=== PATIENT | female | born 1990 | race African-American/Black ===

== ENCOUNTER 2025-05-16 10:59 | Emergency (ER) | payer OTHER, SELFPAY ==
--- NOTE | 2025-05-16 11:43 | RAD REPORT ---
EXAMINATION: Head Brain Wo Cont CLINICAL INDICATION: Female, 34 years old.Headache;Numbness TECHNIQUE: Axial CT images from the skull base to the vertex without intravenous contrast. Coronal an d sagittal reformatted images were created from the data set. One or more of the following dose reduction techniques were used: Automated exposure control, adjustment of the mA and/or kV according to patient size, and/or iterative reconstruction. Unless otherwise specified, incidental findings do not require dedicated imaging follow-up. [id number]. COMPARISON: No prior exams FINDINGS: INTRACRANIAL: No acute intracranial hemorrhage. No acute large vascular territory infarct. No hydro cephalus. No mass effect or midline shift. No significant white matter disease. VASCULATURE: No visualized abnormalities in the arteries or dural venous sinuses. SCALP/SKULL: No calvarial fracture identified. No acute soft tissue abnormality. SINUSES: The visualized paranasal sinuses are mostly clear. No significant mastoid fluid. IMPRESSION: No acute intracranial abnormality.
[2025-05-16 11:57] LABS: Absolute Lymphocytes (CBC) 1.8 K/uL (0.7-4.9); Hematocrit 38.0 % (36.0-45.0); Hemoglobin 12.7 g/dL (12.0-15.0); MCH 31.6 pg (27.0-35.0); MCHC 33.4 g/dL (32.0-36.0); MCV 94.4 fL (80-100); MPV 9.1 fL (7.6-11.3); Nucleated RBC Absolute Count 0.0 (0-0); Nucleated Red Blood Cells % 0.0 % (0-0); RBC Red Blood Cell Count 4.02 M/uL (3.86-4.86); White Blood Count 5.80 thou/uL (4.3-10.9)
[2025-05-16 12:14] LABS: ALT/SGPT 22.0 U/L (13-56); AST/SGOT 14.0 U/L (15-37); Albumin 3.8 g/dL (3.4-5.0); Albumin/Globulin Ratio 1.1 (1.1-1.8); Alkaline Phosphatase 42.0 U/L (45-117); Anion Gap 11.5 mEq/L (5.0-15.0); BUN Blood Urea Nitrogen 8.0 mg/dL (7-18); Globulin 3.6 g/dL (2.3-3.5); Glucose Level 88.0 mg/dL (74-106); Magnesium 2.0 mg/dL (1.6-2.4); Potassium 3.5 mEq/L (3.5-5.1)
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
--- NOTE | 2025-05-16 12:22 | ER ---
Nurse's Notes [facility] Name: Juana Clark Age: 34 yrs Sex: Female : 1990 Arrival Date: 05/16/2025 Time: 10:59 Bed 5 Private MD: Diagnosis: Headache;Facial swelling Presentation: 05/16 11:40 Chief complaint: Patient states: C/O swelling to right upper forehead. ar8 11:40 Coronavirus screen: At this time, the client does not indicate any symptoms associated ar8 with coronavirus-19. Ebola Screen: Patient denies travel to an Ebola-affected area in the 21 days before illness onset. Mechanism of Injury: resulted from no injury. Initial Sepsis Screen: Does the patient meet any 2 criteria? No. Patient's initial sepsis screen is negative. Does the patient have a suspected source of infection? No. Patient's initial sepsis screen is negative. Risk Assessment: Do you want to hurt yourself or someone else? Patient reports no desire to harm self or others. 11:40 Method Of Arrival: Ambulatory ar8 11:40 Acuity: OJ ANN 3 ar8 Triage Assessment: 11:54 General: Appears in no apparent distress. Behavior is calm, cooperative. Pain: Denies ar8 pain. EENT: swelling to right upper forehead. Neuro: Level of Consciousness is awake, alert, obeys commands, Oriented to person, place, time, situation, Reports swelling to forehead. Cardiovascular: Patient's skin is warm and dry. Respiratory: Airway is patent Respiratory effort is even, unlabored, Respiratory pattern is regular, symmetrical. GI: No signs and/or symptoms were reported involving the gastrointestinal system. : No signs and/or symptoms were reported regarding the genitourinary system. Historical: - Allergies: 11:54 No Known Allergies; ar8 - Home Meds: 11:54 None [Active]; ar8 - PMHx: 11:54 None; ar8 - PSHx: 11:54 None; ar8 - Immunization history:: Adult Immunizations not up to date. - Infectious Disease History:: Denies. - Social history:: Smoking status: Patient denies any tobacco usage or history of. Screenin:56 [facility] ED Fall Risk Assessment (Adult) History of falling in the last 3 months, ar8 including since admission No falls in past 3 months (0 pts) Confusion or Disorientation No (0 pts) Intoxicated or Sedated No (0 pts) Impaired Gait No (0 pts) Mobility Assist Device Used No (0 pt) Altered Elimination No (0 pt) Score/Fall Risk Level 0 - 2 = Low Risk Oriented to surroundings, Maintained a safe environment. Abuse screen: Denies threats or abuse. Nutritional screening: No deficits noted. Tuberculosis screening: No symptoms or risk factors identified. Assessment: 11:56 Reassessment: See triage assessment. ar8 12:37 Reassessment: Patient appears in no apparent distress at this time. Patient and/or db family updated on plan of care and expected duration. Pain level reassessed. Patient is alert, oriented x 3, equal unlabored respirations, skin warm/dry/pink. General: Appears in no apparent distress. comfortable, Behavior is calm, cooperative. Neuro: Level of Consciousness is awake, alert, obeys commands, Oriented to person, place, time, situation. Respiratory: Airway is patent Respiratory effort is even, unlabored, Respiratory pattern is regular, symmetrical. Vital Signs: 11:40 BP 118 / 85; Pulse 60; Resp 18; Temp 98.4(O); Pulse Ox 98% on R/A; Pain 0/10; ar8 12:00 BP 107 / 73; Pulse 60; Resp 16; Pulse Ox 98% on R/A; db 12:30 BP 106 / 62; Pulse 57; Resp 16; Pulse Ox 100% on R/A; db 11:40 Pain Scale: Adult ar8 [place] Coma Score: 11:40 Eye Response: spontaneous(4). Motor Response: obeys commands(6). Verbal Response: ar8 oriented(5). Total: 15. 12:20 Eye Response: spontaneous(4). Motor Response: obeys commands(6). Verbal Response: jh7 oriented(5). Total: 15. NIH Stroke Scale Scores: 11:04 NIHSS Score: 0 [facility] ED Course: 11:03 Patient arrived in ED. al6 11:04 Alya Kitchen FNP is PHCP. jh7 11:04 Vicente Almazan MD is Attending Physician. jh7 11:29 CT Head Brain wo Cont In Process Unspecified. EDMS 11:34 Antoni Noel, FLOWER is Primary Nurse. ar8 11:50 No provider procedures requiring assistance completed. Inserted saline lock: 20 gauge ar8 in right forearm, using aseptic technique. Blood collected. Flushed with 10 mL NS. 11:54 Triage completed. ar8 11:54 Arm band placed on left wrist. ar8 11:56 Bed in low position. Call light in reach. Side rails up X2. Provided Education on: plan ar8 of care. Pulse ox on. NIBP on. 11:57 CBC with Diff Sent. ar8 11:57 CMP Sent. ar8 11:58 Magnesium Sent. ar8 12:38 IV discontinued, intact, bleeding controlled, No redness/swelling at site. db Administered Medications: No medications were administered Medication: 11:56 VIS not applicable for this client. ar8 Outcome: 12:21 Discharge ordered by MD. zhang 12:38 Discharged to home ambulatory, db 12:38 Condition: stable 12:38 Discharge instructions given to patient, Instructed on discharge instructions, follow up and referral plans. 12:38 Patient left the ED. db NIH Stroke Scale - NIH Stroke Score Date: 05/16/2025 Time: 11:04 Total Score = 0 10. Dysarthria (speech clarity - read or repeat words) - 0(Normal) 11. Extinction and Inattention (visual/tactile/auditory/spatial/personal) - 0(No abnormality) 1a. Level of Consciousness (LOC) - 0(Alert) 1b. Level of Consciousness (LOC) (Month \T\ Age) - 0(Both) 1c. LOC Commands (Open \T\ Closes Eyes/Composite Bond Technician) - 0(Both) 2. Best Gaze (Lateral Gaze Paresis) - 0(Normal) 3. Visual Field Loss - 0(No visual loss) 4. Facial Palsy - 0(Normal) 5a. Left Arm: Motor (10-second hold) - 0(No drift) 5b. Right Arm: Motor (10-second hold) - 0(No drift) 6a. Left Leg: Motor (5-second hold - always test supine) - 0(No drift) 6b. Right Leg: Motor (5-second hold - always test supine) - 0(No drift) 7. Limb Ataxia (finger/nose \T\ heel/douglas - test with eyes open) - 0(Absent) 8. Sensory Loss (pinprick arms/legs/face) - 0(Normal) 9. Best Language: Aphasia (description/naming/reading) - 0(No aphasia) Initials: jh7 Signatures: Dispatcher [employer] Ayla Arellano, COURT ORDERLY COURT ORDERLY jh7 Ana Castorena, RN RN Uyen Johnson Andrea RN RN ar8
[2025-05-16 12:52] VITALS: TEMP 98.4
[2025-05-16 12:55] VITALS: BP 106/62; O2SAT 100
== END 2025-05-16 12:38 | disposition home or self-care (01) ==
LOC: ER 10:59
DX: R51.9 Headache, unspecified (principal); R22.0 Localized swelling, mass and lump, head
CPT/HCPCS: 36415; 70450; 80053; 83735; 85025; 99284